=== PATIENT | male | born 1950 | race Caucasian/White ===

== ENCOUNTER 2016-10-19 12:08 | Observation (INO) | payer OTHER ==
[2016-10-19] MEDS ORDERED: NS 1000 ML 1,000 ML ONE (12:40)
--- NOTE | 2016-10-19 12:58 | DR.H&P ---
H&P - History & Physical for Day of: H&P Date: 10/19/16 - Chief Complaint Chief Complaint: dizziness, unsteady, weak. AMS per family - Allergies Allergies/Adverse Reactions: Allergies Allergy/AdvReac Type Severity Reaction Status Date / Time No Known Drug Allergies Allergy Verified 10/19/16 12:38 - History of Present Illness History of Present Illness: 66 WM DIRECT ADMIT FROM DR CALVO OFFICE AFTER PRESENING THIS AM WITH CO NEW ONSET DIZZINESS AND CONFUSION. FAMILY STATES PT WOKE UP AROUND 5:30 FOR BREAKFAST, WAS VERY UNSTREADY, HAD MOUTH DROOP AND "TALKING OUT OF HIS HEAD". FAMILY STATES PT "CAME TO" ABOUT 1 HR LATER. PT DENIES CP OR SOB, CO DIZZINESS AND WEAKNESS. PT WORKED OUTSIDE IN HIS YARDS YESTERDAY, AFRAID HE OVER HEATED. PT HAS INCREASE LOWER EXTREMITY NUMBNESS AND WEAKNESS, PT HAS HX OF LUMBAR SPINE DDD WITHOUT HX OF PARESTHESIA. PT HAS HTN AND MILD RENAL INSUFF. PLAN TO ADIMT FOR STAT CT HEAD, SERIAL CARDIAC EZYMES, EKG MONITORING - Past Medical History Past Medical History: Arthritis, Hypertension, Sleep Apnea - Past Surgical History Surgical History: Ortho Surgery - Social History Does patient currently use any type of tobacco product: No Have you used tobacco products in the last 12 months: No Type of Tobacco Use: None Does any household member use tobacco: No Alcohol Use: None Drug Use: None - Review of Systems Constitutional: Weakness Eyes: No Symptoms Reported ENT: No Symptoms Reported Respiratory: Shortness of Breath Cardiovascular: Edema Gastrointestinal: No Symptoms Reported Genitourinary: No Symptoms Reported Musculoskeletal: Leg Pain Skin: No Symptoms Reported Neurological: Weakness Oriented: Person Eyes: Normal Ear: Normal Nose: Normal Throat: Dry Respiratory: RLL Diminished, LLL Diminished Cardiovascular: Normal, Edema (+2 BILATERAL EDEMA) : Normal Auscultation: Bowel Sounds: Normal Palpation: Normal Tenderness: Normal Skin: Decreased Turgur (MILDLY) Musculoskeletal: Back:Lumbar, Sensory Deficit (DECREASE SENSATION BILATERAL LOWER EXTREMITIES) Affect: Anxious Speech Pattern: Clear - Assessment/Plan (1) Altered mental status Qualifiers: Altered mental status type: A Coma depth: C Coma timing: C Status: Acute Plan: ADMIT, ICU, STAT CT HEAD. SERIAL CARDIAC ENZYMES AND EKG. TELEMETRY, IV HYDRATION, ADMISSION LABS CBC CMP UA. NEURO CHECKS, BP AND LIPID CONTROL. MRI LUMBAR SPINE- ROUTINE, RESUME HOME MEDS (2) Weakness Status: Acute (3) Heat exhaustion Qualifiers: Encounter type: E Status: Acute (4) Hypertension Qualifiers: Hypertension type: H Status: Acute (5) Arthralgia Qualifiers: Joint pain location: J Laterality: L Status: Acute (6) Paresthesia of bilateral legs Status: Acute (7) Degenerative lumbar spinal stenosis Status: Acute
[2016-10-19 12:59] LABS: BASOPHILS # (AUTO) 0.1 X10^3/uL (0.0-0.1); BASOPHILS % (AUTO) 1.1 % (0.2-1.0); EOSINOPHILS # (AUTO) 0.3 x10^3/uL (0.0-0.2); EOSINOPHILS % (AUTO) 5.2 % (0.9-2.9); HEMATOCRIT 42.2 % (42.0-54.0); HEMOGLOBIN 14.5 g/dL (13.5-18.0); LYMPHOCYTES # (AUTO) 1.4 X10^3/uL (1.3-2.9); LYMPHOCYTES % (AUTO) 24.5 % (21.0-51.0); MEAN CORPUSCULAR HEMOGLOBIN 31.2 pg (27.0-34.0); MEAN CORPUSCULAR HGB CONC 34.5 g/dL (33.0-35.0); MEAN CORPUSCULAR VOLUME 90.4 fL (80.0-100.0); MEAN PLATELET VOLUME 7.9 fL (7.4-11.0); MONOCYTES # (AUTO) 0.6 x10^3/uL (0.3-0.8); MONOCYTES % (AUTO) 10.9 % (0.0-13.0); NEUTROPHILS # (AUTO) 3.4 x10^3/uL (2.2-4.8); NEUTROPHILS % (AUTO) 58.3 % (42.0-75.0); PLATELET COUNT 285 X10^3/uL (150.0-450.0); RED BLOOD COUNT 4.66 X10^6/uL (4.7-6.0); RED CELL DISTRIBUTION WIDTH 14.5 % (11.6-16.5); WHITE BLOOD COUNT 5.8 X10^3/uL (3.6-10.0)
[2016-10-19] MEDS ORDERED: NS 1000 ML 1,000 ML IV SCH (13:00)
[2016-10-19 13:05] VITALS: BMI 40.0
[2016-10-19 13:42] LABS: ALANINE AMINOTRANSFERASE 53 Units/L (12-78); ALKALINE PHOSPHATASE 77 Units/L (46-116); ASPARTATE AMINO TRANSFERASE 44 Units/L (15-37); BLOOD UREA NITROGEN 39 mg/dL (7-18); CALCIUM 8.7 mg/dL (8.5-10.1); CARBON DIOXIDE 28.8 mmol/L (21-32); CHLORIDE 101 mmol/L (98-107); CKMB % 1.8 % (<4); CREATINE KINASE 946 Units/L (39-308); CREATININE 2.08 mg/dL (0.70-1.30); GLUCOSE 103 mg/dL (65-99); SODIUM 137 mmol/L (136-145); TOTAL PROTEIN 7.8 g/dL (6.4-8.2); TROPONIN I < 0.02 ng/mL (0-1.5); eGFR BLACK RACES 41 (>60); eGFR NON BLACK RACES 34 (>60)
[2016-10-19 13:46] LABS: CREATINE KINASE MB 17.3 ng/mL (0-4.0)
--- NOTE | 2016-10-19 14:30 | CT ---
History: Altered mental cyst status and facial droop Study: Multi senior planner CT head without contrast. Comparison: None Findings: The ventricles and sulci are normal in size and configuration. There is no intracranial he morrhage or mass or edema or subdural collection of fluid. There is minimal periventricular white ma tter low attenuation. The sinuses are clear. The calvarium is intact. Impression: No acute intracranial disease Reported By:
--- NOTE | 2016-10-19 14:30 | RAD ---
HISTORY: Altered mental status, facial droop, syncope Study: Chest two-view Comparison: None Findings: The trachea is midline. The cardiac silhouette is unremarkable. The lungs are clear without focal infiltrate or effusion. The bony thorax is unremarkable. IMPRESSION: 1. No acute cardiopulmonary disease. Reported By:
[2016-10-19 14:32] LABS: BILIRUBIN,URINE NEGATIVE (NEGATIVE); BLOOD/HEMOGLOBIN,URINE NEGATIVE (NEGATIVE); GLUCOSE, URINE NEGATIVE (NEGATIVE); KETONES,URINE NEGATIVE (NEGATIVE); LEUKOCYTE ESTERASE ,URINE NEGATIVE (NEGATIVE); NITRITES,URINE NEGATIVE (NEGATIVE); PH,URINE 6.5 (5.0 - 8.0); PROTEIN,URINE NEGATIVE (NEGATIVE); UROBILINOGEN,URINE NORMAL (NORMAL)
[2016-10-19 14:38] LABS: APPEARANCE,URINE CLEAR (CLEAR); BACTERIA,URINE NEGATIVE /HPF (NEGATIVE); COLOR,URINE YELLOW (YELLOW); RBC,URINE NONE SEEN /HPF (NEGATIVE); SQUAMOUS EPITHELIAL CELL,UR RARE /HPF (NEGATIVE)
--- NOTE | 2016-10-19 16:08 | MRI ---
Lumbar spine MRI without contrast Indication: Intractable lower back pain with leg weakness Technique: Multi sequence, multiplanar MR images of the lumbar spine were obtained without contrast. Comparison: Lumbar spine radiograph February 06, 2012 Findings: There are Modic type 1 degenerative endplate changes at L2-L3 and Modic type II degenerative endplat e changes at L5-S1. Marrow signal and lumbar vertebral body heights and alignment otherwise appear n ormal. No acute fracture, subluxation or suspicious osseous lesion is seen. The conus is normal in s ignal and caliber, terminating at T12-L1. Visualized paraspinal soft tissues are unremarkable. T12-L1: Mild paracentral disc bulge. Otherwise unremarkable. L1-L2: Mild facet arthropathy and paracentral disc bulge with mild resultant right foraminal narrowi ng. L2-L3: Prominent broad-based posterior disc bulge, ligamentum flavum thickening and right greater th e left facet arthropathy, with severe resultant canal stenosis and mild bilateral foraminal narrowin g. L3-L4: Prominent broad-based posterior disc bulge, ligamentum flavum thickening and hypertrophic fac et arthropathy with moderate resultant left and right lateral recess narrowing and mild canal stenos is. L4-L5: Prominent broad-based posterior disc bulge, ligamentum flavum thickening and hypertrophic fac et arthropathy, causing severe canal stenosis. No significant foraminal narrowing. L5-S1: Advanced disc desiccation/narrowing with broad-based posterior disk osteophyte complex and fa cet arthropathy, causing mild-moderate bilateral foraminal narrowing without appreciable canal steno sis. Reported By: Impression: Moderately advanced spondylosis of the lumbosacral spine with severe multilevel canal and mild-moder ate multilevel foraminal stenosis, greatest at L2-L3 and L4-L5 as detailed above.
[2016-10-19] MEDS ORDERED: NORCO 10/325 TAB PO PRN (18:48)
[2016-10-19] MEDS ORDERED: NS 1000 ML 1,000 ML IV ONE (18:50)
[2016-10-19 19:53] LABS: CKMB % 1.7 % (<4); CREATINE KINASE 734 Units/L (39-308); TROPONIN I < 0.02 ng/mL (0-1.5)
[2016-10-19 19:54] LABS: CREATINE KINASE MB 12.8 ng/mL (0-4.0)
[2016-10-19] MEDS ORDERED: AMBIEN PO PRN (20:27)
[2016-10-19] MEDS ORDERED: PATIENT'S HOME MEDICATION (Ondansetron Hcl [Ondansetron Hcl] 1 TAB) PO PRN (20:32)
[2016-10-19] MEDS ORDERED: ZOFRAN TAB 4 MG PO PRN (20:54)
[2016-10-19] MEDS ORDERED: LIPITOR TAB 40 MG PO SCH (21:00)
[2016-10-19] MEDS ORDERED: PREGABALIN PO SCH (21:00)
[2016-10-19] MEDS ORDERED: ZOLPIDEM TARTRATE 12.5 MG PO SCH (21:00)
[2016-10-19] MEDS: NORCO 10/325 TAB PO PRN (21:03)
[2016-10-19] MEDS: LYRICA CAP 75 MG PO SCH (21:03)
[2016-10-19] MEDS: LOVENOX INJ 40 MG SYR SC SCH (21:06)
[2016-10-19] MEDS: NS 1000 ML 1,000 ML IV SCH (21:06)
--- NOTE | 2016-10-19 21:10 | VAS ---
HISTORY: 66-year-old male with dizziness, hyperlipidemia and reported TIA. Study: Carotid duplex Doppler. Comparison: None. Technique: Multiple alberto scale and color flow Doppler images of the right and left carotid arterial system were obtained. The vertebral arterial system was evaluated as well. Findings: Normal color flow Doppler is seen throughout the right and left carotid arterial system. Small amou nt of calcified plaque in the high carotid bulb. No hemodynamically significant stenosis is seen bas ed on velocity criteria. The right and left vertebral arteries demonstrate antegrade flow. IMPRESSION: 1. No hemodynamically significant stenosis. Reported By:
[2016-10-20 01:27] LABS: CKMB % 1.8 % (<4); CREATINE KINASE 620 Units/L (39-308); TROPONIN I < 0.02 ng/mL (0-1.5)
[2016-10-20 01:28] LABS: CREATINE KINASE MB 11.3 ng/mL (0-4.0)
[2016-10-20] MEDS: NS 1000 ML 1,000 ML IV SCH ×2 (02:32→13:32)
[2016-10-20] MEDS: NORCO 10/325 TAB PO PRN ×2 (02:32→08:16)
[2016-10-20 05:06] LABS: BASOPHILS % (AUTO) 0.7 % (0.2-1.0); EOSINOPHILS # (AUTO) 0.3 x10^3/uL (0.0-0.2); EOSINOPHILS % (AUTO) 6.1 % (0.9-2.9); HEMOGLOBIN 13.3 g/dL (13.5-18.0); LYMPHOCYTES # (AUTO) 1.6 X10^3/uL (1.3-2.9); LYMPHOCYTES % (AUTO) 30.7 % (21.0-51.0); MEAN CORPUSCULAR HEMOGLOBIN 30.8 pg (27.0-34.0); MEAN CORPUSCULAR VOLUME 90.4 fL (80.0-100.0); MEAN PLATELET VOLUME 8.1 fL (7.4-11.0); MONOCYTES # (AUTO) 0.5 x10^3/uL (0.3-0.8); MONOCYTES % (AUTO) 10.3 % (0.0-13.0); NEUTROPHILS # (AUTO) 2.7 x10^3/uL (2.2-4.8); NEUTROPHILS % (AUTO) 52.2 % (42.0-75.0); PLATELET COUNT 250 X10^3/uL (150.0-450.0); RED BLOOD COUNT 4.32 X10^6/uL (4.7-6.0); RED CELL DISTRIBUTION WIDTH 14.1 % (11.6-16.5); WHITE BLOOD COUNT 5.2 X10^3/uL (3.6-10.0)
[2016-10-20 05:08] LABS: ALANINE AMINOTRANSFERASE 43 Units/L (12-78); ALBUMIN 3.2 g/dL (3.4-5.0); ALKALINE PHOSPHATASE 65 Units/L (46-116); ASPARTATE AMINO TRANSFERASE 34 Units/L (15-37); BLOOD UREA NITROGEN 30 mg/dL (7-18); CALCIUM 8.1 mg/dL (8.5-10.1); CARBON DIOXIDE 26.4 mmol/L (21-32); CHLORIDE 105 mmol/L (98-107); COR CA(FOR HYPOALB) 8.7 mg/dL (8.5-10.1); CREATININE 1.49 mg/dL (0.70-1.30); GLUCOSE 99 mg/dL (65-99); SODIUM 138 mmol/L (136-145); TOTAL PROTEIN 6.6 g/dL (6.4-8.2); eGFR BLACK RACES > 60 (>60); eGFR NON BLACK RACES 50 (>60)
[2016-10-20 05:46] LABS: CHOL/HDL RATIO 4.4 (0.0-5.0)
[2016-10-20 07:34] LABS: CREATINE KINASE 628 Units/L (39-308); TROPONIN I < 0.02 ng/mL (0-1.5)
[2016-10-20 07:45] LABS: CREATINE KINASE MB 12.4 ng/mL (0-4.0)
[2016-10-20] MEDS: LOVENOX INJ 40 MG SYR SC SCH (08:11)
[2016-10-20] MEDS: LYRICA CAP 75 MG PO SCH (08:12)
[2016-10-20] MEDS ORDERED: LIPITOR TAB 40 MG PO SCH (09:00)
[2016-10-20] MEDS ORDERED: FENOFIBRIC ACID PO SCH (09:00)
[2016-10-20] MEDS ORDERED: PROzac PO SCH (09:00)
[2016-10-20] MEDS ORDERED: TRICOR TAB 145 MG PO SCH (10:00)
[2016-10-20 12:11] VITALS: BP 132/63
== END 2016-10-20 13:40 | disposition home or self-care (01) ==
LOC: ICU 12:08
PROVIDERS: ADMIT Internal Medicine; ATTEND Internal Medicine
DX: R40.4 Transient alteration of awareness (principal); R29.810 Facial weakness; X30.XXXA Exposure to excessive natural heat, initial encounter; Y93.9 Activity, unspecified; Y92.9 Unspecified place or not applicable; R42 Dizziness and giddiness; M25.50 Pain in unspecified joint; R20.8 Other disturbances of skin sensation; R94.31 Abnormal electrocardiogram [ECG] [EKG]; I10 Essential (primary) hypertension; N28.9 Disorder of kidney and ureter, unspecified; M47.896 Other spondylosis, lumbar region
CPT/HCPCS: 36415; 70450; 71020; 72148; 80053; 80061; 81001; 82550; 82553; 84484; 85025; 85610; 85730; 87086; 93005; 93010; 93880; A4222; G0378; J1650

== ENCOUNTER 2021-06-24 16:03 | Inpatient (IN) ==
[2021-06-24] MEDS ORDERED: NS 500 ML IV 500 ML IV ONE ×2 (16:18→16:22)
--- NOTE | 2021-06-24 16:20 | DR.GENAD ---
HPI Time Seen Time Seen by Provider: 06/24/21 16:12 PCP Primary Care Physician: RICHY Complaint/Symptoms Chief Complaint Doctors Comments: 71 y/o male presents for evaluation. Pt seen by me initially, without spouse. Pt states he has been having increasing weakness over the past few months. Has worsened over the past 10 days. No focal weakness, feels weak in general. + malaise. Had a fever one day last week. Denies headache, visual changes, congestion, sore throat, cough, dyspnea, nausea,vomiting, abdominal pain, difficulty in urination, problems with bowels, rashes. Saw Dr Colbert 2 days ago, checked urine, treated with augmentin. Has felt some nausea with antibiotic. Office called him to check on him today, told him to come to the ER. Spouse now in room - gives different story. Pt ill x 10 days. Ran a high fever, 104 degrees, for 3 days, with shaking chills. No other symptoms of infection. Saw PCP 2 days ago, had urine and blood tests done. Was treated then for possibe UTI. Not better. Pt is very confused, per . Has had decreased po intake x 2 days. Has been stuck in the recliner past 2 days. No specific symptoms, no recent travel or contact with farm animals. Had negative home Covid test last week. Still with fever today, not as high, took Tylenol today. Chief Complaint:: STATES PT. HAS BEEN SICK FOR 10 DAYS WITH WEAKNESS AND HIGH FEVER. PT. HAS GOTTEN WORSE SINCE ONSET. FOR THE PAST 2 DAYS, PT. HAS BEEN IN A RECLINER, NOT EATING OR DRINKING. PT. SEEN PCP ON MONDAY AND HAD A URINALYSIS DONE AND BLOOD WORK. PT. WAS PLACED ON AUGMENTIN AND FLOMAX PER . COVID-19 Coronavirus risk:travel/contact w/high risk person: No Has patient experienced Coronavirus symptoms: Yes Coronavirus symptoms experienced: Fever Nurses notes reviewed Nurses Notes Review: No Source History Provided: Patient Mode of Arrival Mode of Arrival: Ambulatory Timing Onset of Chief Complaint: 06/14/21 PMH PMH Past Medical History: Yes Past Medical History: Arthritis, Hypertension and Sleep Apnea Past Surgical History: Yes Surgical History: Ortho Surgery Family History History of Family Medical Conditions: No Social History Does patient currently use any type of tobacco product: No Have you used tobacco products in the last 12 months: No Type of Tobacco Use: None Does any household member use tobacco: No Alcohol Use: None Do you use any recreational Drugs:: No Lives With: Spouse Lives Where: Home Infectious screening In the last 2 months have you had wt loss of >10#?: NO Have you had fever, night sweats or hemotysis?: No Have you traveled outside the country in the last 6 months?: No Isolation: Standard ROS Review of Systems Constitutional: Chills, Fever, Malaise, Weakness, Fatigue and Loss of Appetite Eyes: No Symptoms Reported ENTM: No Symptoms Reported Respiratoy: No Symptoms Reported Cardiovascular: No Symptoms Reported Gastrointestinal/Abdominal: No Symptoms Reported Genitourinary: No Symptoms Reported Neurological: Weakness Musculoskeletal: No Symptoms Reported Integumentary: No Symptoms Reported Hematologic/Lymphatic: No Symptoms Reported Psychiatric: No Symptoms Reported All Other Systems: Reviewed and Negative PE Vital Signs Vitals: Temperature 98.3 F Pulse Rate 70 Respiratory Rate 20 Blood Pressure [Right Arm] 132/63 Blood Pressure 135/64 O2 Sat by Pulse Oximetry 96 General Limitations: No Limitations General Appearance: Alert, In No Apparent Distress and Other (ambulates without difficulty, using a cane) Head Head Exam: Normal Inspection Eyes Eye exam: Normal Appearance, PERRL and EOMI ENT ENT Exam: Normal Exam, Normal Oropharynx and Mucous Membranes Moist Neck Neck Exam: Normal Inspection and Full ROM; negative Tenderness Chest Chest Inspection: Normal Inspection Respiratory Respiratory Exam: Normal Lung Sounds Bilat; negative Accessory Muscle Use and Respiratory Distress Respiratory Exam: Bilateral: Clear to Auscultation Cardiovascular Cardiovascular Exam: Regular Rate, Normal Rhythm and Normal Heart Sounds Abdominal Exam Abdominal Exam: Normal Inspection, Normal Bowel Sounds and Soft; negative Tenderness Extremities Extremities Exam: Normal Inspection and Full ROM; negative Tenderness and Edema Back Back Exam: Normal Inspection; negative (R) CVA Tenderness and (L) CVA Tenderness Neurologic Neurological Exam: Alert, Oriented X3 and CN II-XII Intact; negative Motor Sensory Deficit Psychiatric Psychiatric Exam: Normal Affect Skin Skin Exam: Warm and Dry MDM Differential Diagnosis Differential Diagnosis: viral illness, bacterial infection, sepsis COURSE Treatment Treatment: 71 y/o male with 10 days of fever chills, weakness and confusion. PE benign, vital signs stable. W/u initiated. Given IV fluids. 1757 - CRP markedly elevated, 322. CBC, CMP, CXR acceptable. Discussed with Dr Colbert. Has been on Augmentin/doxycycline x 2 days for possible prostatitis, not helping. Will admit for IV antibiotics and further observation. EGFR < 40, hopefully with improve with IV fluids, perhaps obtain a CT of the abd/pelvis tomorrow if kidney numbers improving. ROR Labs Reviewed Laboratory Results Reviewed?: Yes Result Diagrams: 06/24/21 16:34 06/24/21 16:34 Laboratory: WBC 12.6 X10^3/uL (3.6-10.0) H 06/24/21 16:34 RBC 4.66 X10^6/uL (4.7-6.0) L 06/24/21 16:34 Hgb 14.0 g/dL (13.5-18.0) 06/24/21 16:34 Hct 40.9 % (42.0-54.0) L 06/24/21 16:34 MCV 87.7 fL (80.0-100.0) 06/24/21 16:34 MCH 30.0 pg (27.0-34.0) 06/24/21 16:34 MCHC 34.2 g/dL (33.0-35.0) 06/24/21 16:34 RDW 16.1 % (11.6-16.5) 06/24/21 16:34 Plt Count 276 X10^3/uL (150.0-450.0) 06/24/21 16:34 MPV 8.8 fL (7.4-11.0) 06/24/21 16:34 Neut % (Auto) 79.2 % (42.0-75.0) H 06/24/21 16:34 Lymph % (Auto) 10.0 % (21.0-51.0) L 06/24/21 16:34 [place] % (Auto) 9.6 % (0.0-13.0) 06/24/21 16:34 Eos % (Auto) 0.9 % (0.9-2.9) 06/24/21 16:34 Baso % (Auto) 0.3 % (0.2-1.0) 06/24/21 16:34 Neut # (Auto) 10.0 x10^3/uL (2.2-4.8) H 06/24/21 16:34 Lymph # (Auto) 1.3 X10^3/uL (1.3-2.9) 06/24/21 16:34 [place] # (Auto) 1.2 x10^3/uL (0.3-0.8) H 06/24/21 16:34 Eos # (Auto) 0.1 x10^3/uL (0.0-0.2) 06/24/21 16:34 Baso # (Auto) 0.0 X10^3/uL (0.0-0.1) 06/24/21 16:34 Absolute Nucleated RBC 0.0 /100WBC 06/24/21 16:34 Sodium 139 mmol/L (136-145) 06/24/21 16:34 Corrected Sodium 140 mmol/L (136-145) 06/24/21 16:34 Potassium 5.1 mmol/L (3.5-5.1) 06/24/21 16:34 Chloride 104 mmol/L (98-107) 06/24/21 16:34 Carbon Dioxide 26.7 mmol/L (21-32) 06/24/21 16:34 BUN 41 mg/dL (7-18) H 06/24/21 16:34 Creatinine 1.87 mg/dL (0.70-1.30) H 06/24/21 16:34 Est GFR (MDRD) Af Amer 46 (>60) L 06/24/21 16:34 Est GFR (MDRD) Non-Af 38 (>60) L 06/24/21 16:34 Glucose 122 mg/dL (65-99) H 06/24/21 16:34 Lactic Acid 0.6 mmol/L (0.4-2.0) 06/24/21 16:39 Calcium 8.7 mg/dL (8.5-10.1) 06/24/21 16:34 Corrected Calcium 9.5 mg/dL (8.5-10.1) 06/24/21 16:34 Total Bilirubin 0.80 mg/dL (0.2-1.0) 06/24/21 16:34 AST 34 Units/L (15-37) 06/24/21 16:34 ALT 47 Units/L (12-78) 06/24/21 16:34 Alkaline Phosphatase 104 Units/L (46-116) 06/24/21 16:34 Creatine Kinase 223 Units/L (39-308) 06/24/21 16:34 CK-MB (CK-2) 2.0 ng/mL (0-4.0) 06/24/21 16:34 CK/CKMB % Calc 0.9 % (<4) 06/24/21 16:34 Troponin I High Sens 10.9 ng/L (4.0-60.0) 06/24/21 16:34 C-Reactive Protein 322.90 mg/L (0-3.0) H 06/24/21 16:34 Total Protein 7.8 g/dL (6.4-8.2) 06/24/21 16:34 Albumin 3.0 g/dL (3.4-5.0) L 06/24/21 16:34 Globulin 4.8 g/dL (2.5-4.5) H 06/24/21 16:34 Albumin/Globulin Ratio 0.6 Ratio (1.1-2.1) L 06/24/21 16:34 Lipase 162 Units/L (73-393) 06/24/21 16:34 TSH 3rd Generation 2.056 uIU/mL (0.358-3.74) 06/24/21 16:34 SARS-CoV-2 (PCR) Negative (NEGATIVE) 06/24/21 16:38 Influenza Type A (PCR) Negative (NEGATIVE) 06/24/21 16:38 Influenza Type B (PCR) Negative (NEGATIVE) 06/24/21 16:38 RSV (PCR) Negative (NEGATIVE) 06/24/21 16:38 XRAY XRAY Interpreted by: Both X-ray Results: CXR without acute abnormalities. Opioid Opioid Risk Tool Total: 0 Total Score Risk Category: Low Risk Copyright: Jesus GOOD predicting aberrant behaviors Diagnosis Discharge Problem: Acute febrile illness Altered mental status Qualifiers: Altered mental status type: unspecified Qualified Code(s): R41.82 - Altered mental status, unspecified
[2021-06-24 16:53] LABS: EOSINOPHILS # (AUTO) 0.1 x10^3/uL (0.0-0.2); MEAN PLATELET VOLUME 8.8 fL (7.4-11.0); MONOCYTES # (AUTO) 1.2 x10^3/uL (0.3-0.8); RED CELL DISTRIBUTION WIDTH 16.1 % (11.6-16.5)
[2021-06-24 17:00] LABS: BASOPHILS % (AUTO) 0.3 % (0.2-1.0); EOSINOPHILS % (AUTO) 0.9 % (0.9-2.9); HEMATOCRIT 40.9 % (42.0-54.0); LYMPHOCYTES # (AUTO) 1.3 X10^3/uL (1.3-2.9); MEAN CORPUSCULAR HGB CONC 34.2 g/dL (33.0-35.0); MEAN CORPUSCULAR VOLUME 87.7 fL (80.0-100.0); MONOCYTES % (AUTO) 9.6 % (0.0-13.0); NEUTROPHILS % (AUTO) 79.2 % (42.0-75.0); RED BLOOD COUNT 4.66 X10^6/uL (4.7-6.0); WHITE BLOOD COUNT 12.6 X10^3/uL (3.6-10.0)
--- NOTE | 2021-06-24 17:10 | RAD ---
HISTORY:Fever, weaknessStudy: Single view chestComparison:NoneFindings:No infiltrate, effusion, or pneumothorax identified.Cardiac silhouette is mildly enlarged.The soft tissues are intact .IMPRESSION:Mild cardiomegaly without acute findings.Electronically signed by: CELE HAMMOND (Jun 24, 2021 17:09:07)
[2021-06-24 17:18] LABS: CALCIUM 8.7 mg/dL (8.5-10.1); CARBON DIOXIDE 26.7 mmol/L (21-32); COR CA(FOR HYPOALB) 9.5 mg/dL (8.5-10.1); CREATININE 1.87 mg/dL (0.70-1.30); TOTAL PROTEIN 7.8 g/dL (6.4-8.2); TSH (3RD GENERATION) 2.056 uIU/mL (0.358-3.74)
--- NOTE | 2021-06-24 17:37 | CT ---
HISTORYPT. HAS BEEN SICK FOR 10 DAYS WITH WEAKNESS AND HIGH FEVER. PT. HAS GOTTEN WORSE SINCE ONSET. FOR THE PAST 2 DAYS, PT. HAS BEEN IN A RECLINER, NOT EATING OR DRINKING.STUDYBRAIN W/O CONCOMPARISONReport only, October 19, 2016TECHNIQUEAxial non-contrast images of the head were obtained with coronal and sagittal reformats provided.Radiation dose: 1256.30 mGy-cm total DLPFINDINGSNo abnormal areas of acute attenuation in the brain parenchyma.Barajas-white differentiation remains intact.No intracranial, extra-axial, fluid collection.No hemorrhage.Mild periventricular chronic microvascular disease.No mass, mass effect or midline shift.Age related brain parenchymal global atrophy.No ventriculomegaly.No acute fracture.Sinuses are well aerated.Mastoid air cells are well aerated.Globes and intra-orbital contents are unremarkable.Cerumen in the external auditory canals.IMPRESSIONNo acute intracranial abnormality identified.Electronically signed by: Keyon Blas (Jun 24, 2021 17:36:33)
[2021-06-24 17:43] LABS: CKMB % 0.9 % (<4)
[2021-06-24] MEDS ORDERED: VANCOMYCIN IV *PREMIX 1 G/200 ML BAG 1 G/200 ML PIGGYBACK IV ONE ×2 (18:09→18:32)
[2021-06-24] MEDS ORDERED: ZOSYN VIAL 3.375 GRAMS 3.375 G in NS 100 ML IV 100 ML IV ONE (18:10)
[2021-06-24] MEDS ORDERED: PHARMACY CONSULT - VANCOMYCIN XX SCH (19:00)
[2021-06-24] MEDS ORDERED: VANCOMYCIN IV *PREMIX 1 G/200 ML BAG 1 G/200 ML PIGGYBACK IV SCH (19:13)
[2021-06-24] MEDS: NS 1,000 ML IV 1,000 ML IV SCH (20:12)
[2021-06-24 20:14] LABS: BILIRUBIN,URINE NEGATIVE (NEGATIVE); BLOOD/HEMOGLOBIN,URINE 4+ (NEGATIVE); GLUCOSE, URINE NEGATIVE (NEGATIVE); KETONES,URINE NEGATIVE (NEGATIVE); LEUKOCYTE ESTERASE ,URINE 1+ (NEGATIVE); NITRITES,URINE NEGATIVE (NEGATIVE); PROTEIN,URINE 2+ (NEGATIVE); UROBILINOGEN,URINE NORMAL (NORMAL)
[2021-06-24 20:21] LABS: APPEARANCE,URINE CLEAR (CLEAR); COLOR,URINE DARK YELLOW (YELLOW)
[2021-06-24 20:22] LABS: BACTERIA,URINE 1+ /HPF (NEGATIVE); SQUAMOUS EPITHELIAL CELL,UR FEW /HPF (NEGATIVE)
[2021-06-24 20:23] LABS: HYALINE CASTS, URINE FEW /LPF (NEGATIVE)
[2021-06-24] MEDS: AMBIEN PO SCH (21:25)
[2021-06-24] MEDS: ZOSYN VIAL 3.375 GRAMS 3.375 G in NS 100 ML IV 100 ML IV SCH (21:25)
[2021-06-24 22:09] VITALS: BMI 42.7
[2021-06-25] MEDS: NS 1,000 ML IV 1,000 ML IV SCH ×3 (05:17→22:42)
[2021-06-25] MEDS: ZOSYN VIAL 3.375 GRAMS 3.375 G in NS 100 ML IV 100 ML IV SCH ×3 (05:18→22:18)
[2021-06-25] MEDS: NORCO 10/325 TAB PO PRN ×2 (05:20→22:23)
[2021-06-25 06:50] LABS: BASOPHILS % (AUTO) 0.3 % (0.2-1.0); EOSINOPHILS # (AUTO) 0.1 x10^3/uL (0.0-0.2); EOSINOPHILS % (AUTO) 0.9 % (0.9-2.9); HEMATOCRIT 37.9 % (42.0-54.0); HEMOGLOBIN 12.7 g/dL (13.5-18.0); LYMPHOCYTES # (AUTO) 1.2 X10^3/uL (1.3-2.9); LYMPHOCYTES % (AUTO) 9.5 % (21.0-51.0); MEAN CORPUSCULAR HEMOGLOBIN 29.6 pg (27.0-34.0); MEAN CORPUSCULAR HGB CONC 33.5 g/dL (33.0-35.0); MEAN CORPUSCULAR VOLUME 88.2 fL (80.0-100.0); MEAN PLATELET VOLUME 9.2 fL (7.4-11.0); MONOCYTES # (AUTO) 1.1 x10^3/uL (0.3-0.8); MONOCYTES % (AUTO) 8.8 % (0.0-13.0); NEUTROPHILS # (AUTO) 9.8 x10^3/uL (2.2-4.8); NEUTROPHILS % (AUTO) 80.5 % (42.0-75.0); RED CELL DISTRIBUTION WIDTH 16.1 % (11.6-16.5); WHITE BLOOD COUNT 12.2 X10^3/uL (3.6-10.0)
[2021-06-25 07:07] LABS: ALBUMIN 2.6 g/dL (3.4-5.0); CALCIUM 8.6 mg/dL (8.5-10.1); COR CA(FOR HYPOALB) 9.7 mg/dL (8.5-10.1); CREATININE 1.69 mg/dL (0.70-1.30); TOTAL PROTEIN 6.9 g/dL (6.4-8.2)
[2021-06-25] MEDS ORDERED: BENICAR TAB 40 MG PO SCH (09:00)
[2021-06-25] MEDS ORDERED: HYDROCHLOROTHIAZIDE 12.5 MG CAP PO SCH (09:00)
[2021-06-25] MEDS ORDERED: NS 1,000 ML IV 1,000 ML IV ONE (09:17)
[2021-06-25] MEDS: ARIMIDEX PO SCH (10:04)
[2021-06-25] MEDS: NORVASC TAB 5 MG PO SCH (10:04)
[2021-06-25] MEDS: PROzac PO SCH (10:05)
[2021-06-25] MEDS: ZYLOPRIM PO SCH (10:05)
[2021-06-25] MEDS: VANCOMYCIN IV *PREMIX 1.5 G/300 ML BAG 1.5 G/300 ML PIGGYBACK IV SCH (10:05)
[2021-06-25] MEDS: LOVENOX INJ 40 MG SYR SC SCH (10:35)
[2021-06-25] MEDS ORDERED: NS 100 ML IV 100 ML ONE (14:08)
[2021-06-25] MEDS: AMBIEN PO SCH (22:16)
[2021-06-26] MEDS: NS 1,000 ML IV 1,000 ML IV SCH ×3 (02:39→19:18)
[2021-06-26] MEDS: ZOSYN VIAL 3.375 GRAMS 3.375 G in NS 100 ML IV 100 ML IV SCH ×3 (05:28→22:20)
[2021-06-26 07:48] LABS: ALANINE AMINOTRANSFERASE 36 Units/L (12-78); ALBUMIN 2.6 g/dL (3.4-5.0); ALKALINE PHOSPHATASE 80 Units/L (46-116); ASPARTATE AMINO TRANSFERASE 30 Units/L (15-37); BLOOD UREA NITROGEN 26 mg/dL (7-18); CALCIUM 8.6 mg/dL (8.5-10.1); CARBON DIOXIDE 21.3 mmol/L (21-32); CHLORIDE 106 mmol/L (98-107); COR CA(FOR HYPOALB) 9.7 mg/dL (8.5-10.1); CREATININE 1.52 mg/dL (0.70-1.30); SODIUM 137 mmol/L (136-145); TOTAL PROTEIN 6.9 g/dL (6.4-8.2); eGFR NON BLACK RACES 48 (>60)
[2021-06-26 08:04] LABS: BASOPHILS % (AUTO) 0.2 % (0.2-1.0); EOSINOPHILS # (AUTO) 0.1 x10^3/uL (0.0-0.2); EOSINOPHILS % (AUTO) 1.1 % (0.9-2.9); HEMATOCRIT 37.3 % (42.0-54.0); HEMOGLOBIN 12.5 g/dL (13.5-18.0); LYMPHOCYTES # (AUTO) 1.2 X10^3/uL (1.3-2.9); LYMPHOCYTES % (AUTO) 10.5 % (21.0-51.0); MEAN CORPUSCULAR HEMOGLOBIN 29.7 pg (27.0-34.0); MEAN CORPUSCULAR HGB CONC 33.6 g/dL (33.0-35.0); MEAN CORPUSCULAR VOLUME 88.4 fL (80.0-100.0); MEAN PLATELET VOLUME 8.5 fL (7.4-11.0); MONOCYTES # (AUTO) 0.9 x10^3/uL (0.3-0.8); MONOCYTES % (AUTO) 7.4 % (0.0-13.0); NEUTROPHILS # (AUTO) 9.5 x10^3/uL (2.2-4.8); NEUTROPHILS % (AUTO) 80.8 % (42.0-75.0); RED BLOOD COUNT 4.22 X10^6/uL (4.7-6.0); RED CELL DISTRIBUTION WIDTH 15.7 % (11.6-16.5); WHITE BLOOD COUNT 11.8 X10^3/uL (3.6-10.0)
[2021-06-26] MEDS: NORCO 10/325 TAB PO PRN ×2 (09:18→22:45)
[2021-06-26] MEDS: PROzac PO SCH (09:20)
[2021-06-26] MEDS: NORVASC TAB 5 MG PO SCH (09:21)
[2021-06-26] MEDS: ZYLOPRIM PO SCH (09:22)
[2021-06-26] MEDS: ARIMIDEX PO SCH (09:22)
[2021-06-26] MEDS: VANCOMYCIN IV *PREMIX 1.5 G/300 ML BAG 1.5 G/300 ML PIGGYBACK IV SCH (09:23)
[2021-06-26] MEDS: LOVENOX INJ 40 MG SYR SC SCH (09:35)
[2021-06-26] MEDS ORDERED: TOPROL XL PO ONE (10:28)
[2021-06-26] MEDS: TOPROL XL PO SCH (10:50)
[2021-06-26] MEDS ORDERED: KAYEXALATE SUSP PO ONE (11:00)
--- NOTE | 2021-06-26 11:44 | CT ---
HISTORYdecreased kidney functionSTUDYABDOMEN/PELVIS W W/O CONCOMPARISONNoneTECHNIQUEMultiple axial images of the abdomen and pelvis were obtained from the lung bases to the pubic symphysis both prior to and after the administration of IV contrast. Dose reduction techniques including Automated Exposure Control (AEC) and adjustment of mA and kV were utilized.FINDINGSIncluded lung bases grossly clear. Coronary artery calcifications.Left hepatic lobe shows a 7 cm low-density lesion with peripheral enhancement. Unclear if this is a peripherally enhancing mass or septated fluid collection as it does not appear cystic on the noncontrast sequence. Spleen, gallbladder, adrenal glands, pancreas, kidneys grossly unremarkable. Delayed sequence partially opacifies the collecting systems and ureters but is incomplete. No hydronephrosis or hydroureter is seen. Bladder is incompletely opacified without obvious abnormality. 15 mm soft tissue density surrounding the distal left ureter just below the pelvic inlet.No bowel obstruction or overt inflammation. Colon is largely collapsed limiting its evaluation. Appendix not seen. No visible ascites, lymphadenopathy, or pneumoperitoneum. Scattered atherosclerosis. No acute osseous finding. Degenerative changes in the spine.IMPRESSIONComplex hypodense and peripherally enhancing lesion of the left hepatic lobe could reflect a complex cystic lesion however measures denser than water. Mass not excluded. Abscess could also have this appearance. Recommend MRI with and without contrast in the near future.Nodular soft tissue around the left ureter just below the pelvic inlet is of uncertain significance and etiology. Neoplasm not excluded.Kidneys appear somewhat atrophicElectronically signed by: Chas Bradley (Jun 26, 2021 11:42:26)
--- NOTE | 2021-06-26 16:22 | PCM.PROG ---
Progress Note Progress Note for Day of Date of Exam: 06/26/21 Subjective Subjective: The patient reports that he had a bad night last night. He currently does not feel all that well either. It is noted that his potassium is 5.6 this morning. I stopped his Benicar 40 mg and instead added metoprolol ER 100 mg by mouth daily. I am also going to give him Kayexalate 30 g by mouth times once a day. We will recheck his CMP in the morning. Past Medical Family Social History Past Med/Fam/Surg Hx: No changes since H&P Allergies: Allergies No Known Drug Allergies Allergy (Verified 06/24/21 16:07) Review of Systems ROS: No change since H&P Vital Signs and I&O's Vital Signs: Temperature 97.0 F Pulse Rate [Left Radial] 72 Pulse Rate 73 Respiratory Rate 22 Blood Pressure [Left Arm] 146/93 Blood Pressure [Right Arm] 157/78 Blood Pressure 136/63 O2 Sat by Pulse Oximetry 93 Intake and Output: Intake & Output 06/24/21 06/25/21 06/26/21 06/27/21 11:59 11:59 11:59 11:59 Intake Total 666 / 666 3644 / 3644 1403 / 1403 Output Total 1400 / 1400 1255 / 1255 Balance -734 / -734 2389 / 2389 1403 / 1403 Physical Exam Speech Pattern: Clear Laboratory and Diagnostics Result Diagrams: 06/26/21 06:56 06/26/21 06:56 Labs: 06/24/21 16:39 Blood Blood Culture - Preliminary 06/24/21 16:34 Blood Blood Culture - Preliminary Laboratory WBC 11.8 X10^3/uL (3.6-10.0) H 06/26/21 06:56 RBC 4.22 X10^6/uL (4.7-6.0) L 06/26/21 06:56 Hgb 12.5 g/dL (13.5-18.0) L 06/26/21 06:56 Hct 37.3 % (42.0-54.0) L 06/26/21 06:56 MCV 88.4 fL (80.0-100.0) 06/26/21 06:56 MCH 29.7 pg (27.0-34.0) 06/26/21 06:56 MCHC 33.6 g/dL (33.0-35.0) 06/26/21 06:56 RDW 15.7 % (11.6-16.5) 06/26/21 06:56 Plt Count 284 X10^3/uL (150.0-450.0) 06/26/21 06:56 MPV 8.5 fL (7.4-11.0) 06/26/21 06:56 Neut % (Auto) 80.8 % (42.0-75.0) H 06/26/21 06:56 Lymph % (Auto) 10.5 % (21.0-51.0) L 06/26/21 06:56 [place] % (Auto) 7.4 % (0.0-13.0) 06/26/21 06:56 Eos % (Auto) 1.1 % (0.9-2.9) 06/26/21 06:56 Baso % (Auto) 0.2 % (0.2-1.0) 06/26/21 06:56 Neut # (Auto) 9.5 x10^3/uL (2.2-4.8) H 06/26/21 06:56 Lymph # (Auto) 1.2 X10^3/uL (1.3-2.9) L 06/26/21 06:56 [place] # (Auto) 0.9 x10^3/uL (0.3-0.8) H 06/26/21 06:56 Eos # (Auto) 0.1 x10^3/uL (0.0-0.2) 06/26/21 06:56 Baso # (Auto) 0.0 X10^3/uL (0.0-0.1) 06/26/21 06:56 Absolute Nucleated RBC 0.0 /100WBC 06/26/21 06:56 Sodium 137 mmol/L (136-145) 06/26/21 06:56 Corrected Sodium TNP 06/26/21 06:56 Potassium 5.6 mmol/L (3.5-5.1) H 06/26/21 06:56 Chloride 106 mmol/L (98-107) 06/26/21 06:56 Carbon Dioxide 21.3 mmol/L (21-32) 06/26/21 06:56 BUN 26 mg/dL (7-18) H 06/26/21 06:56 Creatinine 1.52 mg/dL (0.70-1.30) H 06/26/21 06:56 Est GFR (MDRD) Af Amer 58 (>60) L 06/26/21 06:56 Est GFR (MDRD) Non-Af 48 (>60) L 06/26/21 06:56 Glucose 97 mg/dL (65-99) 06/26/21 06:56 Lactic Acid 0.6 mmol/L (0.4-2.0) 06/24/21 16:39 Calcium 8.6 mg/dL (8.5-10.1) 06/26/21 06:56 Corrected Calcium 9.7 mg/dL (8.5-10.1) 06/26/21 06:56 Total Bilirubin 0.70 mg/dL (0.2-1.0) 06/26/21 06:56 AST 30 Units/L (15-37) 06/26/21 06:56 ALT 36 Units/L (12-78) 06/26/21 06:56 Alkaline Phosphatase 80 Units/L (46-116) 06/26/21 06:56 Creatine Kinase 223 Units/L (39-308) 06/24/21 16:34 CK-MB (CK-2) 2.0 ng/mL (0-4.0) 06/24/21 16:34 CK/CKMB % Calc 0.9 % (<4) 06/24/21 16:34 Troponin I High Sens 10.9 ng/L (4.0-60.0) 06/24/21 16:34 C-Reactive Protein 322.90 mg/L (0-3.0) H 06/24/21 16:34 Total Protein 6.9 g/dL (6.4-8.2) 06/26/21 06:56 Albumin 2.6 g/dL (3.4-5.0) L 06/26/21 06:56 Globulin 4.3 g/dL (2.5-4.5) 06/26/21 06:56 Albumin/Globulin Ratio 0.6 Ratio (1.1-2.1) L 06/26/21 06:56 Lipase 162 Units/L (73-393) 06/24/21 16:34 TSH 3rd Generation 2.056 uIU/mL (0.358-3.74) 06/24/21 16:34 Specimen Type Clean catch urine 06/24/21 20:05 Urine Color Dark yellow (YELLOW) 06/24/21 20:05 Urine Appearance Clear (CLEAR) 06/24/21 20:05 Urine pH 5.0 (5.0 - 8.0) 06/24/21 20:05 Ur Specific [place] 1.015 (1.000-1.030) 06/24/21 20:05 Urine Protein 2+ (NEGATIVE) 06/24/21 20:05 Urine Glucose (UA) Negative (NEGATIVE) 06/24/21 20: Urine Ketones Negative (NEGATIVE) 06/24/21 20: Urine Occult Blood 4+ (NEGATIVE) 06/24/21 20:05 Urine Nitrite Negative (NEGATIVE) 06/24/21 20: Urine Bilirubin Negative (NEGATIVE) 06/24/21 20:05 Urine Urobilinogen Normal (NORMAL) 06/24/21 20:05 Ur Leukocyte Esterase 1+ (NEGATIVE) 06/24/21 20:05 Urine RBC 5-10 /HPF (0-3) A 06/24/21 20:05 Urine WBC 0-2 /HPF (0-5) 06/24/21 20:05 Ur Squamous Epith Cells Few /HPF (NEGATIVE) 06/24/21 20:05 Amorphous Sediment 1+ /HPF (NEGATIVE) 06/24/21 20:05 Urine Bacteria 1+ /HPF (NEGATIVE) 06/24/21 20:05 Hyaline Casts Few /LPF (NEGATIVE) 06/24/21 20:05 Urine Mucus Few /HPF (NEGATIVE) 06/24/21 20:05 Ur Culture Indicated? No/not indicated 06/24/21 20:05 SARS-CoV-2 (PCR) Negative (NEGATIVE) 06/24/21 16:38 Influenza Type A (PCR) Negative (NEGATIVE) 06/24/21 16:38 Influenza Type B (PCR) Negative (NEGATIVE) 06/24/21 16:38 RSV (PCR) Negative (NEGATIVE) 06/24/21 16:38 ST: Old Plan (1) Hypertension: Status: Acute Plan: Monitor the patient's blood pressure. (2) Hyperkalemia: Status: Acute Plan: Kayexalate 30 g by mouth 1 today (3) Hematuria: Status: Acute Plan: Plan CT urogram once the patient's creatinine normalizes enough.
[2021-06-26] MEDS: AMBIEN PO SCH (22:20)
[2021-06-27] MEDS: NS 1,000 ML IV 1,000 ML IV SCH ×5 (04:44→22:10)
[2021-06-27] MEDS: ZOSYN VIAL 3.375 GRAMS 3.375 G in NS 100 ML IV 100 ML IV SCH ×3 (05:35→23:29)
[2021-06-27 06:14] LABS: BASOPHILS # (AUTO) 0.1 X10^3/uL (0.0-0.1); BASOPHILS % (AUTO) 0.8 % (0.2-1.0); EOSINOPHILS # (AUTO) 0.2 x10^3/uL (0.0-0.2); EOSINOPHILS % (AUTO) 1.9 % (0.9-2.9); HEMATOCRIT 37.1 % (42.0-54.0); HEMOGLOBIN 12.6 g/dL (13.5-18.0); LYMPHOCYTES # (AUTO) 1.3 X10^3/uL (1.3-2.9); LYMPHOCYTES % (AUTO) 13.5 % (21.0-51.0); MEAN CORPUSCULAR HGB CONC 33.9 g/dL (33.0-35.0); MEAN CORPUSCULAR VOLUME 88.5 fL (80.0-100.0); MEAN PLATELET VOLUME 8.2 fL (7.4-11.0); MONOCYTES # (AUTO) 0.6 x10^3/uL (0.3-0.8); MONOCYTES % (AUTO) 6.6 % (0.0-13.0); NEUTROPHILS # (AUTO) 7.5 x10^3/uL (2.2-4.8); NEUTROPHILS % (AUTO) 77.2 % (42.0-75.0); RED BLOOD COUNT 4.19 X10^6/uL (4.7-6.0); RED CELL DISTRIBUTION WIDTH 15.8 % (11.6-16.5); WHITE BLOOD COUNT 9.7 X10^3/uL (3.6-10.0)
[2021-06-27 06:46] LABS: ALANINE AMINOTRANSFERASE 35 Units/L (12-78); ALBUMIN 2.5 g/dL (3.4-5.0); ALKALINE PHOSPHATASE 80 Units/L (46-116); ASPARTATE AMINO TRANSFERASE 29 Units/L (15-37); BLOOD UREA NITROGEN 24 mg/dL (7-18); CALCIUM 8.6 mg/dL (8.5-10.1); CHLORIDE 108 mmol/L (98-107); COR CA(FOR HYPOALB) 9.8 mg/dL (8.5-10.1); CREATININE 1.47 mg/dL (0.70-1.30); SODIUM 137 mmol/L (136-145); TOTAL PROTEIN 6.9 g/dL (6.4-8.2); eGFR NON BLACK RACES 50 (>60)
[2021-06-27] MEDS ORDERED: TOPROL XL PO ONE (07:34)
[2021-06-27] MEDS: TOPROL XL PO SCH (08:43)
[2021-06-27] MEDS: ARIMIDEX PO SCH (08:43)
[2021-06-27] MEDS: ZYLOPRIM PO SCH (08:43)
[2021-06-27] MEDS: NORVASC TAB 5 MG PO SCH (08:43)
[2021-06-27] MEDS: PROzac PO SCH (08:43)
[2021-06-27] MEDS: VANCOMYCIN IV *PREMIX 1.5 G/300 ML BAG 1.5 G/300 ML PIGGYBACK IV SCH (09:34)
[2021-06-27] MEDS: LOVENOX INJ 40 MG SYR SC SCH (09:34)
--- NOTE | 2021-06-27 15:42 | PCM.PROG ---
Progress Note Progress Note for Day of Date of Exam: 06/27/21 Subjective Subjective: The patient reports that he had a better night last night. He did have a CT scan yesterday which showed a left hepatic lobe complex cyst and it appears. It also showed just below the ureter on the left a possible nodular mass. His potassium is down to 5.2 this morning. He did receive Kayexalate yesterday but I am not giving him any this morning. I think by just holding his Benicar and give him IV fluid his potassium should normalize by tomorrow morning. Repeat CBC CMP in the morning and continue current treatment. Past Medical Family Social History Past Med/Fam/Surg Hx: No changes since H&P Allergies: Allergies No Known Drug Allergies Allergy (Verified 06/24/21 16:07) Review of Systems ROS: No change since H&P Vital Signs and I&O's Vital Signs: Temperature 97.9 F Pulse Rate [Left Radial] 61 Pulse Rate 73 Respiratory Rate 20 Blood Pressure [Left Arm] 147/83 Blood Pressure [Right Arm] 157/78 Blood Pressure 136/63 O2 Sat by Pulse Oximetry 96 Intake and Output: Intake & Output 06/25/21 06/26/21 06/27/21 06/28/21 11:59 11:59 11:59 11:59 Intake Total 666 / 666 3644 / 3644 4083 / 4083 Output Total 1400 / 1400 1255 / 1255 550 / 550 Balance -734 / -734 2389 / 2389 3533 / 3533 Physical Exam Speech Pattern: Clear Laboratory and Diagnostics Result Diagrams: 06/27/21 05:40 06/27/21 05:40 Labs: 06/24/21 16:39 Blood Blood Culture - Preliminary 06/24/21 16:34 Blood Blood Culture - Preliminary Laboratory WBC 9.7 X10^3/uL (3.6-10.0) 06/27/21 05:40 RBC 4.19 X10^6/uL (4.7-6.0) L 06/27/21 05:40 Hgb 12.6 g/dL (13.5-18.0) L 06/27/21 05:40 Hct 37.1 % (42.0-54.0) L 06/27/21 05:40 MCV 88.5 fL (80.0-100.0) 06/27/21 05:40 MCH 30.0 pg (27.0-34.0) 06/27/21 05:40 MCHC 33.9 g/dL (33.0-35.0) 06/27/21 05:40 RDW 15.8 % (11.6-16.5) 06/27/21 05:40 Plt Count 314 X10^3/uL (150.0-450.0) 06/27/21 05:40 MPV 8.2 fL (7.4-11.0) 06/27/21 05:40 Neut % (Auto) 77.2 % (42.0-75.0) H 06/27/21 05:40 Lymph % (Auto) 13.5 % (21.0-51.0) L 06/27/21 05:40 [place] % (Auto) 6.6 % (0.0-13.0) 06/27/21 05:40 Eos % (Auto) 1.9 % (0.9-2.9) 06/27/21 05:40 Baso % (Auto) 0.8 % (0.2-1.0) 06/27/21 05:40 Neut # (Auto) 7.5 x10^3/uL (2.2-4.8) H 06/27/21 05:40 Lymph # (Auto) 1.3 X10^3/uL (1.3-2.9) 06/27/21 05:40 [place] # (Auto) 0.6 x10^3/uL (0.3-0.8) 06/27/21 05:40 Eos # (Auto) 0.2 x10^3/uL (0.0-0.2) 06/27/21 05:40 Baso # (Auto) 0.1 X10^3/uL (0.0-0.1) 06/27/21 05:40 Absolute Nucleated RBC 0.0 /100WBC 06/27/21 05:40 Sodium 137 mmol/L (136-145) 06/27/21 05:40 Corrected Sodium TNP 06/27/21 05:40 Potassium 5.2 mmol/L (3.5-5.1) H 06/27/21 05:40 Chloride 108 mmol/L (98-107) H 06/27/21 05:40 Carbon Dioxide 20.0 mmol/L (21-32) L 06/27/21 05:40 BUN 24 mg/dL (7-18) H 06/27/21 05:40 Creatinine 1.47 mg/dL (0.70-1.30) H 06/27/21 05:40 Est GFR (MDRD) Af Amer > 60 (>60) 06/27/21 05:40 Est GFR (MDRD) Non-Af 50 (>60) L 06/27/21 05:40 Glucose 86 mg/dL (65-99) 06/27/21 05:40 Lactic Acid 0.6 mmol/L (0.4-2.0) 06/24/21 16:39 Calcium 8.6 mg/dL (8.5-10.1) 06/27/21 05:40 Corrected Calcium 9.8 mg/dL (8.5-10.1) 06/27/21 05:40 Total Bilirubin 0.50 mg/dL (0.2-1.0) 06/27/21 05:40 AST 29 Units/L (15-37) 06/27/21 05:40 ALT 35 Units/L (12-78) 06/27/21 05:40 Alkaline Phosphatase 80 Units/L (46-116) 06/27/21 05:40 Creatine Kinase 223 Units/L (39-308) 06/24/21 16:34 CK-MB (CK-2) 2.0 ng/mL (0-4.0) 06/24/21 16:34 CK/CKMB % Calc 0.9 % (<4) 06/24/21 16:34 Troponin I High Sens 10.9 ng/L (4.0-60.0) 06/24/21 16:34 C-Reactive Protein 322.90 mg/L (0-3.0) H 06/24/21 16:34 Total Protein 6.9 g/dL (6.4-8.2) 06/27/21 05:40 Albumin 2.5 g/dL (3.4-5.0) L 06/27/21 05:40 Globulin 4.4 g/dL (2.5-4.5) 06/27/21 05:40 Albumin/Globulin Ratio 0.6 Ratio (1.1-2.1) L 06/27/21 05:40 Lipase 162 Units/L (73-393) 06/24/21 16:34 TSH 3rd Generation 2.056 uIU/mL (0.358-3.74) 06/24/21 16:34 Specimen Type Clean catch urine 06/24/21 20:05 Urine Color Dark yellow (YELLOW) 06/24/21 20:05 Urine Appearance Clear (CLEAR) 06/24/21 20:05 Urine pH 5.0 (5.0 - 8.0) 06/24/21 20:05 Ur Specific [place] 1.015 (1.000-1.030) 06/24/21 20:05 Urine Protein 2+ (NEGATIVE) 06/24/21 20:05 Urine Glucose (UA) Negative (NEGATIVE) 06/24/21 20:05 Urine Ketones Negative (NEGATIVE) 06/24/21 20:05 Urine Occult Blood 4+ (NEGATIVE) 06/24/21 20:05 Urine Nitrite Negative (NEGATIVE) 06/24/21 20:05 Urine Bilirubin Negative (NEGATIVE) 06/24/21 20:05 Urine Urobilinogen Normal (NORMAL) 06/24/21 20:05 Ur Leukocyte Esterase 1+ (NEGATIVE) 06/24/21 20:05 Urine RBC 5-10 /HPF (0-3) A 06/24/21 20:05 Urine WBC 0-2 /HPF (0-5) 06/24/21 20:05 Ur Squamous Epith Cells Few /HPF (NEGATIVE) 06/24/21 20:05 Amorphous Sediment 1+ /HPF (NEGATIVE) 06/24/21 20:05 Urine Bacteria 1+ /HPF (NEGATIVE) 06/24/21 20:05 Hyaline Casts Few /LPF (NEGATIVE) 06/24/21 20:05 Urine Mucus Few /HPF (NEGATIVE) 06/24/21 20:05 Ur Culture Indicated? No/not indicated 06/24/21 20:05 SARS-CoV-2 (PCR) Negative (NEGATIVE) 06/24/21 16:38 Influenza Type A (PCR) Negative (NEGATIVE) 06/24/21 16:38 Influenza Type B (PCR) Negative (NEGATIVE) 06/24/21 16:38 RSV (PCR) Negative (NEGATIVE) 06/24/21 16:38 Plan (1) Hypertension: Status: Acute Plan: Monitor the patient's blood pressure. (2) Hyperkalemia: Status: Acute Plan: Kayexalate 30 g by mouth 1 today (3) Hematuria: Status: Acute Plan: Plan CT urogram once the patient's creatinine normalizes enough.
[2021-06-27] MEDS: NORCO 10/325 TAB PO PRN (23:28)
[2021-06-27] MEDS: AMBIEN PO SCH (23:28)
[2021-06-28] MEDS: NS 1,000 ML IV 1,000 ML IV SCH ×4 (03:55→23:26)
[2021-06-28 05:18] LABS: BASOPHILS # (AUTO) 0.1 X10^3/uL (0.0-0.1); BASOPHILS % (AUTO) 1.3 % (0.2-1.0); EOSINOPHILS # (AUTO) 0.2 x10^3/uL (0.0-0.2); EOSINOPHILS % (AUTO) 2.3 % (0.9-2.9); HEMOGLOBIN 12.7 g/dL (13.5-18.0); LYMPHOCYTES # (AUTO) 1.2 X10^3/uL (1.3-2.9); LYMPHOCYTES % (AUTO) 15.7 % (21.0-51.0); MEAN CORPUSCULAR HEMOGLOBIN 29.8 pg (27.0-34.0); MEAN CORPUSCULAR HGB CONC 33.4 g/dL (33.0-35.0); MEAN PLATELET VOLUME 8.1 fL (7.4-11.0); MONOCYTES # (AUTO) 0.5 x10^3/uL (0.3-0.8); NEUTROPHILS # (AUTO) 5.8 x10^3/uL (2.2-4.8); NEUTROPHILS % (AUTO) 73.7 % (42.0-75.0); RED BLOOD COUNT 4.27 X10^6/uL (4.7-6.0); RED CELL DISTRIBUTION WIDTH 16.1 % (11.6-16.5); WHITE BLOOD COUNT 7.8 X10^3/uL (3.6-10.0)
[2021-06-28 05:35] LABS: ALANINE AMINOTRANSFERASE 33 Units/L (12-78); ALBUMIN 2.5 g/dL (3.4-5.0); ALKALINE PHOSPHATASE 72 Units/L (46-116); ASPARTATE AMINO TRANSFERASE 27 Units/L (15-37); BLOOD UREA NITROGEN 25 mg/dL (7-18); CALCIUM 8.6 mg/dL (8.5-10.1); CARBON DIOXIDE 19.7 mmol/L (21-32); CHLORIDE 105 mmol/L (98-107); COR CA(FOR HYPOALB) 9.8 mg/dL (8.5-10.1); CREATININE 1.46 mg/dL (0.70-1.30); SODIUM 135 mmol/L (136-145); TOTAL PROTEIN 6.9 g/dL (6.4-8.2); eGFR NON BLACK RACES 51 (>60)
[2021-06-28] MEDS: ZOSYN VIAL 3.375 GRAMS 3.375 G in NS 100 ML IV 100 ML IV SCH ×3 (05:48→21:34)
[2021-06-28] MEDS ORDERED: TOPROL XL PO ONE (06:53)
[2021-06-28] MEDS ORDERED: PHARMACY COMMENT IV NR (08:30)
[2021-06-28] MEDS: ARIMIDEX PO SCH (08:56)
[2021-06-28] MEDS: TOPROL XL PO SCH (08:57)
[2021-06-28] MEDS: NORVASC TAB 5 MG PO SCH (08:57)
[2021-06-28] MEDS: VANCOMYCIN IV *PREMIX 1.5 G/300 ML BAG 1.5 G/300 ML PIGGYBACK IV SCH (08:57)
[2021-06-28] MEDS: PROzac PO SCH (08:57)
[2021-06-28] MEDS: ZYLOPRIM PO SCH (08:58)
[2021-06-28] MEDS: LOVENOX INJ 40 MG SYR SC SCH (09:50)
[2021-06-28 11:14] LABS: AMYLASE 46 Units/L (25-115); LIPASE 390 Units/L (73-393)
[2021-06-28] MEDS: AMBIEN PO SCH (21:34)
[2021-06-28] MEDS: NORCO 10/325 TAB PO PRN (21:35)
[2021-06-29] MEDS: NS 1,000 ML IV 1,000 ML IV SCH (04:18)
[2021-06-29] MEDS: ZOSYN VIAL 3.375 GRAMS 3.375 G in NS 100 ML IV 100 ML IV SCH (05:02)
[2021-06-29 06:11] LABS: BASOPHILS % (AUTO) 0.7 % (0.2-1.0); EOSINOPHILS # (AUTO) 0.1 x10^3/uL (0.0-0.2); EOSINOPHILS % (AUTO) 2.1 % (0.9-2.9); HEMATOCRIT 38.4 % (42.0-54.0); LYMPHOCYTES # (AUTO) 1.1 X10^3/uL (1.3-2.9); LYMPHOCYTES % (AUTO) 18.1 % (21.0-51.0); MEAN CORPUSCULAR HEMOGLOBIN 30.3 pg (27.0-34.0); MEAN CORPUSCULAR VOLUME 89.1 fL (80.0-100.0); MEAN PLATELET VOLUME 8.2 fL (7.4-11.0); MONOCYTES # (AUTO) 0.5 x10^3/uL (0.3-0.8); MONOCYTES % (AUTO) 8.4 % (0.0-13.0); NEUTROPHILS # (AUTO) 4.4 x10^3/uL (2.2-4.8); NEUTROPHILS % (AUTO) 70.7 % (42.0-75.0); RED BLOOD COUNT 4.31 X10^6/uL (4.7-6.0); RED CELL DISTRIBUTION WIDTH 15.7 % (11.6-16.5); WHITE BLOOD COUNT 6.3 X10^3/uL (3.6-10.0)
[2021-06-29 06:13] LABS: ALANINE AMINOTRANSFERASE 31 Units/L (12-78); ALBUMIN 2.5 g/dL (3.4-5.0); ALKALINE PHOSPHATASE 71 Units/L (46-116); ASPARTATE AMINO TRANSFERASE 27 Units/L (15-37); BLOOD UREA NITROGEN 22 mg/dL (7-18); CALCIUM 8.4 mg/dL (8.5-10.1); CARBON DIOXIDE 19.7 mmol/L (21-32); CHLORIDE 105 mmol/L (98-107); COR CA(FOR HYPOALB) 9.6 mg/dL (8.5-10.1); CREATININE 1.35 mg/dL (0.70-1.30); SODIUM 134 mmol/L (136-145); TOTAL PROTEIN 6.8 g/dL (6.4-8.2); eGFR NON BLACK RACES 55 (>60)
--- NOTE | 2021-06-29 08:30 | MRI ---
HISTORYF/U HEPATIC LESIONS SEEN ON CTSTUDYMRI ABDOMEN W/WO IV CONTRASTCOMPARISONCT 06/1921TECHNIQUEMRI of the abdomenwithout and with IV contrast is performed using standard sequences in multiple planes. 20 cc MultiHance IV contrast.FINDINGSLiver is normal in size. The peripheral enhancing lesion in the left hepatic lobe appears to have a moderately thick septation. It has fluid/fluid level on T2 weighted series. The peripheral enhancing rim has mild increased T2 signal and a few smaller cysts. The main cystic component measures 5.7 x 4.9 x 4.3 cm. Overall size of the lesion including the enhancing peripheral rim and smaller cysts measures 7.3 x 7.5 x 5.4 cm. No calcifications are seen on CT imaging and the fluid/fluid levels are not appreciable on CT. No enhancing nodular component is seen.There is a simple appearing 1.5 cm cyst in the superior aspect of the right hepatic lobe. In the left hepatic lobe near the falciform ligament there are 3 peripherally enhancing lesions with low T2 signal rim and high T2 signal center. These do not enhance completely on delayed imaging. The largest of these lesions measures 1.2 cm.Gallbladder appears normal. No biliary ductal dilation is seen. There is poor signal to noise ratio and artifacts limiting evaluation of most of the remainder of the abdomen. Pancreas is partially fatty replaced. No adrenal nodule is seen. There is a probable benign 1.2 cm cyst in the mid right kidney.IMPRESSION7.3 x 7.5 x 5.4 cm lesion in the left hepatic lobe could be cystadenoma or cystadenocarcinoma. A pyogenic abscess would be another possible etiology, as would an hydatid cyst. Cystic metastases would be less likely.There are 3 other smaller peripherally enhancing lesions in the left hepatic lobe near the falciform ligament that may be of the same process.Simple cyst is seen in the superior aspect of the right hepatic lobe and mid right kidney.Electronically signed by: Pratik Lieberman (Jun 29, 2021 08:30:08)
[2021-06-29 08:41] LABS: CREATININE 1.27 mg/dL (0.70-1.30); VANCOMYCIN,TROUGH 9.4 ug/mL (15-20)
[2021-06-29] MEDS ORDERED: TOPROL XL PO ONE (08:56)
[2021-06-29] MEDS: ZYLOPRIM PO SCH (09:29)
[2021-06-29] MEDS: NORVASC TAB 5 MG PO SCH (09:29)
[2021-06-29] MEDS: TOPROL XL PO SCH (09:29)
[2021-06-29] MEDS: ARIMIDEX PO SCH (09:30)
[2021-06-29] MEDS: PROzac PO SCH (09:30)
[2021-06-29] MEDS: LOVENOX INJ 40 MG SYR SC SCH (09:31)
[2021-06-29] MEDS: VANCOMYCIN IV *PREMIX 1.5 G/300 ML BAG 1.5 G/300 ML PIGGYBACK IV SCH (09:33)
[2021-06-29] MEDS ORDERED: COZAAR PO SCH (10:00)
[2021-06-29] MEDS ORDERED: VANCOMYCIN IV *PREMIX 1 G/200 ML BAG 1 G/200 ML PIGGYBACK IV SCH (10:00)
[2021-06-29 12:17] VITALS: BP 163/80
[2021-06-30] MEDS ORDERED: PHARMACY COMMENT IV NR (05:30)
[2021-07-01 07:34] LABS: HEPATITIS B SURFACE ANTIGEN Negative (Negative)
--- NOTE | 2021-09-07 19:00 | PCM.PROG ---
Progress Note - Progress Note for Day of Date of Exam: 06/28/21 - Subjective Subjective: IS A 71 YEAR OLD PATIENT OF . HE WAS ADMITTED FOR SUSPECTED PROSTATITIS SECONDARY TO UTI, AMS, AND HYPERKALEMIA. HE FAILED TREATMENT WITH AUGMENTIN AND DOXYCYCLINE. HE IS NOW ON VANCOMYCIN, ZOSYN, AND TAZOBACTAM. TODAY, HE IS ALERT AND ORIENTED, LYING IN BED ON MORNING ROUNDS. HE COMPLAINS OF GENERALIZED WEAKNESS TODAY. ON EXAMINATION, HEART IS REGULAR IN RATE AND RHYTHM. BILATERAL LUNGS ARE NOTED WITH DIMINISHED LUNG SOUNDS THROUGHOUT. ABDOMEN IS ROUND, SOFT, AND NOTED WITH MILD DIFFUSE TENDERNESS. NORMAL BOWEL SOUNDS ARE NOTED IN ALL QUADRANTS. HIS VITALS THIS MORNING ARE: 98.2-58-20-96%-178/77. LABS WERE OBTAINED. ABNORMAL LAB VALUES INCLUDE THE FOLLOWING: RBC 4.27, HGB 12.7, HCT 38.0, SODIUM 135, POTASSIUM 5.3, CARBON DIOXIDE 19.7, BUN 25, CREATININE 1.46, ALBUMIN 2.5. AN ABDOMEN/PELVIS CT WAS OBTAINED ON 06/26/21 AND REVEALED: Complex hypodense and peripherally enhancing lesion of the left hepatic lobe could reflect a complex cystic lesion however measures denser than water. Mass not excluded. Abscess could also have this appearance. Recommend MRI with and without contrast in the near future. Nodular soft tissue around the left ureter just below the pelvic inlet is of uncertain significance and etiology. Neoplasm not excluded. Kidneys appear somewhat atrophic. AN ABDOMEN MRI WITH AND WITHOUT CONTRAST WAS OBTAINED THIS MORNING AND REVEALED: 7.3 x 7.5 x 5.4 cm lesion in the left hepatic lobe could be cystadenoma or cystadenocarcinoma. A pyogenic abscess would be another possible etiology, as would an hydatid cyst. Cystic metastases would be less likely. There are 3 other smaller peripherally enhancing lesions in the left hepatic lobe near the falciform ligament that may be of the same process. Simple cyst is in the superior aspect of the right hepatic lobe and mid right kidney. WE WILL CONITNUE WITH IV HYDRATION AND CURRENT PLAN OF CARE TODAY. OTHERWISE, WE PLAN TO FOLLOW UP WITH AM LABS AND CONTINUE TO MONITOR. TIME SPENT ON CLINICAL ASS ESSMENT, REVIEWING LABS AND IMAGING, DECISION MAKING, AND DOCUMENTATION GREATER THAN 45 MINUTES. - Past Medical Family Social History Past Med/Fam/Surg Hx: No changes since H&P Allergies: Allergies No Known Drug Allergies Allergy (Verified 05/20/22 10:01) - Review of Systems ROS: No change since H&P - Vital Signs and I&O's Vital Signs: Temperature 97.9 F Pulse Rate [Left Radial] 59 Pulse Rate 73 Respiratory Rate 20 Blood Pressure [Left Arm] 163/80 Blood Pressure [Right Arm] 157/78 Blood Pressure 136/63 O2 Sat by Pulse Oximetry 97 - Physical Exam Oriented: Normal Eyes: Normal Ear: Normal Nose: Normal Throat: Normal Respiratory: Diminished Cardiovascular: Bradycardia : Normal Auscultation: Bowel Sounds: Normal Palpation: Normal Tenderness: Normal Skin: Normal Musculoskeletal: Normal Psychiatric: Normal Mood Description: Calm Affect: Normal Speech Pattern: Clear - Laboratory and Diagnostics Result Diagrams: 06/29/21 05:30 06/29/21 08:14 Labs: 06/24/21 16:39 Blood Blood Culture - Final 06/24/21 16:34 Blood Blood Culture - Final Laboratory WBC 6.3 X10^3/uL (3.6-10.0) 06/29/21 05:30 RBC 4.31 X10^6/uL (4.7-6.0) L 06/29/21 05:30 Hgb 13.0 g/dL (13.5-18.0) L 06/29/21 05:30 Hct 38.4 % (42.0-54.0) L 06/29/21 05:30 MCV 89.1 fL (80.0-100.0) 06/29/21 05:30 MCH 30.3 pg (27.0-34.0) 06/29/21 05:30 MCHC 34.0 g/dL (33.0-35.0) 06/29/21 05:30 RDW 15.7 % (11.6-16.5) 06/29/21 05:30 Plt Count 368 X10^3/uL (150.0-450.0) 06/29/21 05:30 MPV 8.2 fL (7.4-11.0) 06/29/21 05:30 Neut % (Auto) 70.7 % (42.0-75.0) 06/29/21 05:30 Lymph % (Auto) 18.1 % (21.0-51.0) L 06/29/21 05:30 Luna % (Auto) 8.4 % (0.0-13.0) 06/29/21 05:30 Eos % (Auto) 2.1 % (0.9-2.9) 06/29/21 05:30 Baso % (Auto) 0.7 % (0.2-1.0) 06/29/21 05:30 Neut # (Auto) 4.4 x10^3/uL (2.2-4.8) 06/29/21 05:30 Lymph # (Auto) 1.1 X10^3/uL (1.3-2.9) L 06/29/21 05:30 Luna # (Auto) 0.5 x10^3/uL (0.3-0.8) 06/29/21 05:30 Eos # (Auto) 0.1 x10^3/uL (0.0-0.2) 06/29/21 05:30 Baso # (Auto) 0.0 X10^3/uL (0.0-0.1) 06/29/21 05:30 Absolute Nucleated RBC 0.1 /100WBC 06/29/21 05:30 Sodium 134 mmol/L (136-145) L 06/29/21 05:30 Corrected Sodium TNP 06/29/21 05:30 Potassium 5.2 mmol/L (3.5-5.1) H 06/29/21 05:30 Chloride 105 mmol/L (98-107) 06/29/21 05:30 Carbon Dioxide 19.7 mmol/L (21-32) L 06/29/21 05:30 BUN 22 mg/dL (7-18) H 06/29/21 05:30 Creatinine 1.27 mg/dL (0.70-1.30) 06/29/21 08:14 Est GFR (MDRD) Af Amer > 60 (>60) 06/29/21 05:30 Est GFR (MDRD) Non-Af 55 (>60) L 06/29/21 05:30 Glucose 91 mg/dL (65-99) 06/29/21 05:30 Lactic Acid 0.6 mmol/L (0.4-2.0) 06/24/21 16:39 Calcium 8.4 mg/dL (8.5-10.1) L 06/29/21 05:30 Corrected Calcium 9.6 mg/dL (8.5-10.1) 06/29/21 05:30 Total Bilirubin 0.50 mg/dL (0.2-1.0) 06/29/21 05:30 AST 27 Units/L (15-37) 06/29/21 05:30 ALT 31 Units/L (12-78) 06/29/21 05:30 Alkaline Phosphatase 71 Units/L (46-116) 06/29/21 05:30 Creatine Kinase 223 Units/L (39-308) 06/24/21 16:34 CK-MB (CK-2) 2.0 ng/mL (0-4.0) 06/24/21 16:34 CK/CKMB % Calc 0.9 % (<4) 06/24/21 16:34 Troponin I High Sens 10.9 ng/L (4.0-60.0) 06/24/21 16:34 C-Reactive Protein 322.90 mg/L (0-3.0) H 06/24/21 16:34 Total Protein 6.8 g/dL (6.4-8.2) 06/29/21 05:30 Albumin 2.5 g/dL (3.4-5.0) L 06/29/21 05:30 Globulin 4.3 g/dL (2.5-4.5) 06/29/21 05:30 Albumin/Globulin Ratio 0.6 Ratio (1.1-2.1) L 06/29/21 05:30 Amylase 46 Units/L (25-115) 06/28/21 04:49 Lipase 390 Units/L (73-393) 06/28/21 04:49 TSH 3rd Generation 2.056 uIU/mL (0.358-3.74) 06/24/21 16:34 Specimen Type Clean catch urine 06/24/21 20:05 Urine Color Dark yellow (YELLOW) 06/24/21 20:05 Urine Appearance Clear (CLEAR) 06/24/21 20:05 Urine pH 5.0 (5.0 - 8.0) 06/24/21 20:05 Ur Specific [place] 1.015 (1.000-1.030) 06/24/21 20:05 Urine Protein 2+ (NEGATIVE) 06/24/21 20:05 Urine Glucose (UA) Negative (NEGATIVE) 06/24/21 20:05 Urine Ketones Negative (NEGATIVE) 06/24/21 20:05 Urine Occult Blood 4+ (NEGATIVE) 06/24/21 20:05 Urine Nitrite Negative (NEGATIVE) 06/24/21 20:05 Urine Bilirubin Negative (NEGATIVE) 06/24/21 20:05 Urine Urobilinogen Normal (NORMAL) 06/24/21 20:05 Ur Leukocyte Esterase 1+ (NEGATIVE) 06/24/21 20:05 Urine RBC 5-10 /HPF (0-3) A 06/24/21 20:05 Urine WBC 0-2 /HPF (0-5) 06/24/21 20:05 Ur Squamous Epith Cells Few /HPF (NEGATIVE) 06/24/21 20:05 Amorphous Sediment 1+ /HPF (NEGATIVE) 06/24/21 20:05 Urine Bacteria 1+ /HPF (NEGATIVE) 06/24/21 20:05 Hyaline Casts Few /LPF (NEGATIVE) 06/24/21 20:05 Urine Mucus Few /HPF (NEGATIVE) 06/24/21 20:05 Ur Culture Indicated? No/not indicated 06/24/21 20:05 Vancomycin Trough 9.4 ug/mL (15-20) L 06/29/21 08:14 SARS-CoV-2 (PCR) Negative (NEGATIVE) 06/24/21 16:38 Hepatitis A IgM Ab Negative (Negative) 06/28/21 04:49 Hep Bs Antigen Negative (Negative) 06/28/21 04:49 Hep Bs Ag Confirmation TNP 06/28/21 04:49 Hep B Core IgM Ab Negative (Negative) 06/28/21 04:49 Hepatitis C Ab Index 0.02 IV 06/28/21 04:49 Hepatitis C Interp Negative (Negative) 06/28/21 04:49 Hepatitis Interpret See note 06/28/21 04:49 Influenza Type A (PCR) Negative (NEGATIVE) 06/24/21 16:38 Influenza Type B (PCR) Negative (NEGATIVE) 06/24/21 16:38 RSV (PCR) Negative (NEGATIVE) 06/24/21 16:38 Miscellaneous Test See scanned report 06/25/21 11:20 - Plan (1) UTI (urinary tract infection) Status: Acute Qualifiers: Urinary tract infection type: acute cystitis Hematuria presence: with hematuria Qualified Code(s): N30.01 - Acute cystitis with hematuria (2) Hematuria Status: Acute Qualifiers: Hematuria type: unspecified type Qualified Code(s): R31.9 - Hematuria, unsp ecified (3) Hyperkalemia Status: Acute (4) Hypertension Status: Chronic Qualifiers: Hypertension type: primary hypertension Qualified Code(s): I10 - Essential (primary) hypertension Plan: Monitor the patient's blood pressure.
== END 2021-06-29 13:50 | disposition home or self-care (01) | DRG 727 ==
LOC: ER 16:03 → MED/SURG 16:03
PROVIDERS: ADMIT Obstetrics & Gynecology Obstetrics; ATTEND Obstetrics & Gynecology Obstetrics